=== PATIENT | female | born 1995 | race Two or more races ===

== ENCOUNTER 2024-04-19 15:06 | Emergency (ER) | payer OTHER ==
[~2024-04-19] VITALS: Ht 160 cm; Wt 0.6 kg
[2024-04-19 15:12] VITALS: BP 118/81; PULSE 107; RESP 18; TEMP 98.2
== END 2024-04-19 16:59 | disposition home or self-care (01) ==
LOC: EMS 15:06
DX: O26.892 Other specified pregnancy related conditions, second trimester (principal); S06.0X0A Concussion without loss of consciousness, initial encounter; Y08.89XA Assault by other specified means, initial encounter; Y93.89 Activity, other specified; Y92.098 Other place in other non-institutional residence as the place of occurrence of the external cause; Y99.8 Other external cause status; Z3A.18 18 weeks gestation of pregnancy
CPT/HCPCS: 76801; 99284; Z7502